=== PATIENT | female | born 1980 | race Caucasian/White ===

== ENCOUNTER 2017-11-27 16:36 | Emergency (ER) | payer MEDICAID ==
--- NOTE | 2017-11-27 17:14 | ED Physician Chart ---
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 Pain, pelvic pain, flank pain, VD, melena, hematemesis, hematochezia, fever , chills, or urinary s/s; pt has dysmenoorhea; pt denies Allergies:: Allergies Allergy/AdvReac Type Severity Reaction Status Date / Time No Known Allergies Allergy Verified 11/27/17 17:08 Historian:: Patient Review:: Nurse's Note Reviewed ED Review of Systems - Review of Systems General/Constitutional: No fever, No chills, No weight loss, No weakness, No diaphoresis, No edema, No loss of appetite Skin: No skin lesions, No rash, No bruising Head: No headache, No light-headedness Eyes: No loss of vision, No pain, No diplopia ENT: No earache, No nasal drainage, No sore throat, No tinnitus Neck: No neck pain, No swelling, No thyromegaly, No stiffness, No mass noted Cardio Vascular: No chest pain, No palpitations, No PND, No orthopnea, No edema Pulmonary: No SOB, No cough, No sputum, No wheezing GI: No nausea, No vomiting, No diarrhea, No pain, No melena, No hematochezia, No constipation, No hematemesis G/U: No dysuria, No frequency, No hematuria 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 discharge, Abnormal vaginal bleeding, No contraction Musculoskeletal: No bone or joint pain, No back pain, No muscle pain Endocrine: No polyuria, No polydipsia Psychiatric: No prior psych history, No depression, No anxiety, No suicidal ideation, No homicidal ideation, No auditory hallucination, No visual hallucination Hematopoietic: No bruising, No lymphadenopathy Allergic/Immuno: No urticaria, No angioedema Neurological: No syncope, No focal symptoms, No weakness, No paresthesia, No headache, No seizure, No dizziness, No confusion, No vertigo ED Past Medical History - Past Medical History Obtainable: Yes Past Medical History: Other (Dysmenorrhea) Social History: Non Smoker, No Alcohol, No Drug Use, Surgical History: Psychiatricy History: None Medication: Reviewed ED Physical Exam - Physical Examination General/Constitutional: Awake, Well-developed, well-nourished, Alert, No distress, GCS 15, Non-toxic appearing, Ambulatory Head: Atraumatic Eyes: Lids, conjuctiva normal, PERRL, EOMI Skin: Nl inspection, No rash, No skin lesions, No ecchymosis, Well hydrated, No lymphadenopathy ENMT: External ears, nose nl, TM canals nl, Nasal exam nl, Lips, teeth, gums nl , Oropharynx nl, Tonsils nl Neck: Nontender, Full ROM w/o pain, No JVD, No nuchal rigidity, No bruit, No mass, No stridor Other Neck comments:: supple; no meningeal signs; no cervical tenderness; Respiratory: Nl effort/Exclusion, Clear to Auscultation, No Wheeze/Rhonchi/Rales Cardio Vascular: RRR, No murmur, gallop, rubs, NL S1 S2, Carotid/Femoral/Distal pulses equal bilaterally GI: No tenderness/rebounding/guarding, No organomegaly, No hernia, Normal BS's, Nondistended, No mass/bruits, No McBurney tenderness, Rectum exam nl Other GI comments:: no pulsatile masses : No CVA tenderness, NL external genitalia Other comments:: Pelvic Exam: deferred by pt; no active bleeding Extremities: No tenderness or effusion, Full ROM, normal strength in all extremities, No edema, Normal digits & nails Neuro/Psych: Alert/oriented, DTR's symmetric, Normal sensory exam, Normal motor strength, Judgement/insight normal, Mood normal, Normal gait, No focal deficits Misc: Normal back, No paraspinal tenderness ED Septic Shock - . Is Septic Shock (SBP<90, OR Lactate>4 mmol\L) present?: No
[2017-11-27] MEDS ORDERED: Sodium Chloride 0.9% 1,000 ML IV ONE (17:23)
[2017-11-27 17:30] LABS: % BASOPHILS 1.1 % (0.0-2.0); % EOSINOPHILS 3.9 % (0.0-5.0); % LYMPHOCYTES 26.2 % (20.0-50.0); % MONOCYTES 5.3 % (2.0-10.0); % NEUTROPHILS 63.5 % (40.0-80.0); BASOPHILE ABSOLUTE 0.1 Th/cumm (0-0.2); EOSINOPHILE ABSOLUTE 0.3 Th/cmm (0.1-0.4); HEMATOCRIT 35.4 % (41.0-60); HEMOGLOBIN 10.9 gm/dL (12-16); LYMPHOCYTE ABSOLUTE 2.2 Th/cmm (1.5-3.0); MEAN CORPUSCULAR HEMOGLOBIN 20.6 pg (27.0-31.0); MEAN CORPUSCULAR HGB CONC 30.7 pg (28.0-36.0); MEAN PLATELET VOLUME 7.6 fl; MONOCYTE ABSOLUTE 0.4 Th/cmm (0.3-1.0); NEUTROPHILE ABSOLUTE 5.4 Th/cmm (1.8-8.0); PLATELET COUNT 325 Th/cmm (150-400); RED BLOOD COUNT 5.27 Mil/cmm (3.80-5.10); RED CELL DISTRIBUTION WIDTH 25.6 % (11.5-20.0); WHITE BLOOD COUNT 8.4 Th/cmm (4.8-10.8)
[2017-11-27 17:42] LABS: INR 1.16 (0.5-1.4); PROTHROMBIN TIME (TEST) 12.2 SECONDS (9.5-11.5)
[2017-11-27 17:44] LABS: BUN - UREA NITROGEN 8 mg/dL (7-25); CALCIUM SERUM 9.4 mg/dL (8.6-10.3); CARBON DIOXIDE 32.3 mEq/L (21.0-31.0); CHLORIDE 98 mEq/L (98-107); CREATININE - SERUM 0.5 mg/dL (0.6-1.2); GFR AFRICAN-AMERICAN > 60.0 ml/min (>90); GFR NON AFRICAN-AMERICAN > 60.0 ml/min; GLUCOSE 190 mg/dL (70-105); POTASSIUM SERUM 4.3 mEq/L (3.5-5.1); SODIUM SERUM 135 mEq/L (136-145)
[2017-11-27 18:49] LABS: MEAN CELL VOLUME 67.1 fl (81-100)
[2017-11-27 22:11] LABS: A1C % 7.7 % (4.0-6.0)
--- NOTE | 2017-11-28 09:15 | ER Physician Documentation ---
DATE OF SERVICE: FINAL ADDENDUM REPORT PATIENT OF: Dr. Brooke, who saw the patient. The patient had vaginal bleeding off and on for the past 5 years. She has been going to [facility] and she had some device put it in, maybe a pessary or something, to stop the vaginal bleeding. She is morbidly obese, weighing 280 pounds. She says she sometimes gets fevers. She takes ibuprofen on and off, but she says she is taking only one tablet, whether it is true or not, I do not know. The patient was examined by Dr. Brooke. According to him, he did not find anything positive. LABORATORY DATA: test was negative. White blood cell is 8.4, hemoglobin is 10.9, hematocrit is 35.4, and neutrophils 63.5. Protime is 12.2 and INR is 1.16. Electrolytes within normal limits. Sodium 135, potassium 4.3, chloride is 98, CO2 32.3, BUN is 8, creatinine 0.5, glucose 190, and calcium is 9.4. test is negative. All the labs are negative. PHYSICAL EXAMINATION: I did again essentially same as before is benign, negative. LUNGS: Clear. HEART: Normal. ABDOMEN: Soft, benign and negative. FINAL DIAGNOSES: Uterine vaginal bleeding, may be dysmenorrhea, may be other causes. She has an appointment with the [facility] doctor on 11/29/2017, so she will be going over there. She does not want any children, so I told her if she does not want any children, she should alert doctor. Whether she needs tubal ligation or not will be decided by her doctor. In conclusion, the final diagnosis, uterine vaginal bleeding may be dysmenorrhea and the patient has mild anemia with a hemoglobin of 10.9 and hematocrit is 35.4. The patient will be seeing her own doctor. OTHER DIAGNOSES: Include, 1. The patient has a device inserted to stop or decrease vaginal bleeding. 2. Morbid obesity. Thank you again, this is Dr. Chapa completing the final report for Dr. Brooke. The patient is discharged for home. All the questions were answered. Should she have any further intense bleeding, she can go to any Emergency Room or she can come over here. All the questions asked by her and the family were answered and there had no further questions to answer. Thank you again, this is Dr. Chapa dictating this report. All the nurses and everybody concurred with this interpretation. JOB# [id number]
== END 2017-11-27 19:44 | disposition home or self-care (01) ==
LOC: ER 16:36
DX: N93.9 Abnormal uterine and vaginal bleeding, unspecified (principal)
CPT/HCPCS: 36415-UA; 80048-TC; 83036-90; 84703-TC; 85025-TC; 85610-TC; J7030; Z7502